=== PATIENT | male | born 2005 | race Caucasian/White ===

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

== ENCOUNTER 2024-01-17 14:57 | Outpatient (CLI) | payer BC, SELFPAY | END 2024-01-17 14:58 | disposition home or self-care (01) | PROVIDERS: PCP Family Medicine; Visit Provider Family Medicine | DX: R79.0 Abnormal level of blood mineral (principal) | CPT/HCPCS: 82728; 83540; 83550 ==

== ENCOUNTER 2024-08-14 09:40 | Outpatient (CLI) | payer BC, SELFPAY | END 2024-08-14 09:41 | disposition home or self-care (01) | PROVIDERS: PCP Family Medicine; Visit Provider Family Medicine | DX: R79.0 Abnormal level of blood mineral (principal); Z13.220 Encounter for screening for lipoid disorders; Z13.21 Encounter for screening for nutritional disorder | CPT/HCPCS: 80061; 82306; 82728 ==

== ENCOUNTER 2024-08-28 10:24 | Outpatient (CLI) | payer BC, SELFPAY ==
[2024-08-28 21:39] LABS: Chloride* 103 mmol/L (96-114); Potassium* 4.2 mmol/L (3.6-5.1); Sodium* 140 mmol/L (135-149)
[2024-08-28 21:42] LABS: Anion Gap 7 mEq/L (7-15); Blood Urea Nitrogen* 11 mg/dL (5-24); Carbon Dioxide* 30 mmol/L (20-32); Creatinine* 0.7 mg/dL (0.6-1.2); Estimated Glomerular Filt Rate 136 ml/min
[2024-08-28 21:43] LABS: Cholesterol* 148 mg/dL (90-199); Glucose* 89 mg/dL (60-115); HDL Cholesterol* 73 mg/dL (>=40); LDL Cholesterol Calculated 63 mg/dL (<100); Magnesium* 1.8 mg/dL (1.5-2.6); Triglycerides* 59 mg/dL (40-149)
[2024-08-28 21:53] LABS: Iron* 73 ug/dL (49-181)
[2024-08-28 22:01] LABS: Vitamin D 25 Hydroxy* 46 ng/mL (30-80)
[2024-08-28 22:05] LABS: Free T4 Free Thyroxine* 0.97 ng/dL (0.70-1.85)
[2024-08-28 22:19] LABS: Ferritin* 32.5 ng/mL (17.9-464.0)
[2024-08-28 22:24] LABS: Hemoglobin A1C* 5.3 % (0-5.6)
[2024-08-28 22:33] LABS: Vitamin B12* 462 pg/mL (243-894)
[2024-08-29 22:11] LABS: Total T3 161 ng/dL (83-215)
[2024-08-29 22:14] LABS: Folate, Serum 19.8 ng/mL (>=5.9)
== END 2024-08-28 10:25 | disposition home or self-care (01) ==
LOC: NPINS 10:25
PROVIDERS: PCP Family Medicine; Visit Provider Nurse Practitioner Psychiatric/Mental Health
DX: F84.0 Autistic disorder (principal); F41.1 Generalized anxiety disorder; F33.0 Major depressive disorder, recurrent, mild
CPT/HCPCS: 80048; 80061; 82306; 82607; 82728; 82746; 83036; 83540; 83735; 84439; 84443; 84480

== ENCOUNTER 2024-09-11 09:11 | Day surgery (SDC) | payer BC, SELFPAY ==
[2024-09-11] VITALS (27 sets, daily range): BP systolic 123–154; BP diastolic 75–98; PULSE 76–116; RESP 14–20; TEMP 36.7–37.3; O2SAT 91–99; BMI 21.6; BMI 21.9
--- OUTSIDE RECORDS SUMMARY | 2024-09-11 09:13 | XMS_ITS | Clinical Summary ---
Author Organization [email or web address] Address [address] [place] [id number] Care Team Providers Care Store Standards Associate Name Role Phone None Primary Care Provider Unavailabl e Allergies Active Allergy Reactions Criticality Noted Date Comments Amoxicillin Hives 05/04/2014 Swelling of the face Animal Dander Other - Describe In Comment Field 10/16/2017 Unknown Reaction recorded previously Azithromycin Edema,Hives,Itching 10/16/2017 Swelling of the face Medications cetirizine (ZyrTEC) 10 mg tablet 05/04/2009 Active melatonin 3 mg cap 05/04/2015 Active multivitamin (Daily Multi-Vitamin) tablet 05/04/2019 Active gabapentin (NEURONTIN) 300 mg capsule Take 900 mg by mouth at bedtime. 02/21/2022 Active desvenlafaxine succinate (PRISTIQ) 50 mg Extended-Releas e tabletIndicatio ns:Anxiety,Depr ession, recurrent Take 1 Tablet (50 mg) by mouth once daily. 90 Tablet 05/25/2022 Active desvenlafaxine succinate (PRISTIQ) 25 mg extended release tabletIndicatio ns:Anxiety,Depr ession, recurrent Take 2 Tablets (50 mg) by mouth once daily. 90 Each 05/25/2022 Active medication order composer Vitron C daily 0 05/25/2022 Active Active Problems Problem Noted Date Diagnosed Date Autism spectrum disorder 05/25/2022 ADHD 05/25/2022 Periodic limb movement disorder (PLMD) Anxiety 05/21/2018 Social History Tobacco Use Types Packs/Day Years Used Date Smoking Tobacco: Never Smokeless Tobacco: Never Tobacco Cessation:Counseling Given: Not Answered Alcohol Use Standard Drinks/Week Comments Never 0 (1 standard drink = 0.6 oz pur e alcohol) PHQ-2 Answer Date Recorded PHQ-2 TOTAL SCORE 1 05/25/2022 Social Connections Answer Date Recorded Do you often feel lonely or isolated from those around you? 0 04/27/2024 Financial Resource Strain Answer Date R ecorded Difficulty of Paying Living Expenses 3 07/05/2024 Difficulty of Paying Living Expenses Not on file 07/05/2024 Food Insecurity Answer Date Recorded Do you worry your food will run out before you are able to buy more? 1 04/27/2024 Transportation Needs Answer Date Record ed Does lack of transportation keep you from medica l appointments? 1 04/27/2024 Does lack of transportation keep you from work, meetings or getting things that you need? 1 04/27/2024 Housing Stability Answer Date Recorded What is your housing situation today? 1 04/27/2024 Utilities Answer Date Recorded Do you have trouble paying f or utilities (for example, heat, electricity, water, phone)? 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 Gender Identity Not on file Sexual Orientation Not on file Obstetrics History Last Filed Vital Signs Vital Sign Reading Time Taken Comments Blood Pressure 116/58 04/27/2024 1:09 PM FIXED INCOME TRADING VICE PRESIDENT Pulse 71 04/27/2024 1:09 PM FIXED INCOME TRADING VICE PRESIDENT Temperature 36.4 C (97.6 F) 04/27/2024 1:09 PM FIXED INCOME TRADING VICE PRESIDENT Respiratory Rate 18 04/27/2024 1:09 PM FIXED INCOME TRADING VICE PRESIDENT Oxygen Saturation 98% 04/27/2024 1:09 PM FIXED INCOME TRADING VICE PRESIDENT Inhaled Oxygen Concentration - - Weight - - Height - - Body Mass Index - - Plan of Treatment Health Maintenance Due Date Last Done Comments Well Child Check for age 3-20 08/09/2007 Tdap 09/09/2015 HIV for age 15-65 09/09/2019 HPV series for age 9-26 (1 - Male 3-dose series) 09/09/2019 BMI (ht and wt on same day) for age 18+ 2022 Hepatitis C screening for age 18-79 2022 Depression screening for age 12+ 05/25/2023 05/25/2022 COVID-19 vaccine series ( season) 2024 04/02/2022, 05/18/2021, 10/08/2020, Additional history exists Tetanus booster 2024 Influenza Vaccine (Season Ended) 2025 Meningococcal series for age 11-21 Aged Out No longer eligible based on patient's age to complete this topic Pneumococcal series for age 6-49 Aged Out No longer eligible based on patient's age to complete this topic Insurance [place] [id number] [employer] NON-ME-ITS [employer] BLUE CROSS OF NON-MN-ITS Care Teams Store Standards Associate Relationship Specialty Start Date End Date None . PCP - General 04/27/24
--- NOTE | 2024-09-11 09:37 | CRLHL7_ITS ---
For Patients: As a result of the Century Cures Act, medical imaging exams and procedure reports are released immediately into your electronic medical record. You may view this report before your referring provider. If you have questions, please contact your health care provider. INDICATION: Right lower quadrant pain. COMPARISON: Abdominal radiograph 10/19/2017 TECHNIQUE: CT of the abdomen and pelvis with intravenous contrast. Multiplanar axial, coronal, and sagittal reformats were reconstructed. Contrast: 66 mL Isovue 370. FINDINGS: Lung bases: Normal. Liver: Normal. No mass. Gallbladder and bile ducts: Normal gallbladder. No bile duct dilation. Pancreas: Normal. Spleen: Normal. Adrenal glands: Normal. Kidneys: Normal parenchyma. No cyst or solid mass. No calculi. No urinary tract dilation. Urinary bladder: Normal. Pelvis: No cyst or mass. Vessels: Normal. Bowel: The appendix is dilated and fluid-filled. There is a 3 centimeter calcified appendicolith at the base. The appendiceal wall is mildly hyperenhancing but does appear to be intact. There is some mild periappendiceal fluid but no phlegmon or abscess. The maximum appendiceal diameter is 1.6 centimeters. No other dilated or inflamed bowel. Moderate stool burden. Lymph nodes: No adenopathy. Peritoneum: No ascites. Abdominal wall: No hernia. Bones: No fractures. No focal worrisome bone lesions. IMPRESSION: Acute appendicitis. There is a 3 centimeter appendicolith. No findings of rupture. No phlegmon or abscess. Please note that all CT scans at this facility use dose modulation, iterative reconstruction, and/or weight-based dosing when appropriate to reduce radiation dose to as low as reasonably achievable. Dictated by Ai Pagan MD @ 09/11/2024 10:11:42 AM (Electronically Signed)
[2024-09-11] MEDS: ONDANSETRON 2 MG/ML inj 4 MG IVP (09:51)
[2024-09-11] MEDS: MORPHINE 4 MG/ML INJ IVP (09:51)
[2024-09-11] MEDS: 0.9 % SODIUM CHLORIDE 1000 ml 1,000 ML IV (09:51)
[2024-09-11 10:03] LABS: Albumin* 5.3 g/dL (3.3-5.0); Chloride* 101 mmol/L (96-114)
[2024-09-11 10:04] LABS: Potassium* 4.1 mmol/L (3.6-5.1); Sodium* 139 mmol/L (135-149)
[2024-09-11 10:06] LABS: Alanine Aminotransferase* 18 U/L (4-50); Aspartate Amino Transferase* 25 U/L (12-35); Blood Urea Nitrogen* 11 mg/dL (5-24); Creatinine* 0.7 mg/dL (0.5-1.5); Est. Creatinine Clearance* 144.72; Estimated Glomerular Filt Rate 135 ml/min
[2024-09-11 10:07] LABS: Alkaline Phosphatase* 119 U/L (40-150); Anion Gap 10 mEq/L (7-15); Bilirubin Total* 1.7 mg/dL (0.1-1.5); Calcium* 10.5 mg/dL (8.4-10.6); Carbon Dioxide* 28 mmol/L (20-32); Glucose* 104 mg/dL (60-115)
[2024-09-11 10:10] LABS: C Reactive Protein* 1.1 mg/dL (0.5-1.0)
--- NOTE | 2024-09-11 10:17 | ED_ITS ---
HPI - General Adult General Date Seen: 09/11/24 Chief complaint: Abdominal Pain Stated complaint: Lower abdominal pain Time Seen by Provider: 09/11/24 09:30 History of Present Illness HPI narrative: Patient is a 19-year-old here with mom for evaluation of abdominal pain. He notes that he developed some diffuse abdominal pain yesterday which localized to the right lower quadrant yesterday evening. It has persisted and worsened since then. He has had associated nausea and dry heaves, no vomiting. He has not had much of an appetite, did eat some toast last night around 6 but has not had anything to eat since then. Last had a little bit of water about an hour prior to coming into the ER. Denies urinary symptoms. No prior abdominal surgeries. History of autism. He is being treated for reflux but this pain is different. Related Data Home Medications ?Medication ?Instructions ?Recorded ?Confirmed cetirizine 10 mg tablet 10 mg PO DAILY 01/30/22 09/11/24 melatonin 3 mg capsule 3 mg PO .Bedtime as needed PRN 01/30/22 09/11/24 multivitamin 1 tab PO QAM 01/17/24 09/11/24 desvenlafaxine succinate 25 mg 25 mg PO QDAY 05/12/24 09/11/24 tablet,extended release 24 hr Previous Rx's ?Medication ?Instructions ?Recorded clonazepam 0.5 mg tablet (Klonopin) 0.5 - 1 mg (1 - 2 x 0.5 mg) PO QHS 03/12/23 #60 tabs iron,carbonyl 65 mg-vitamin C 125 1 tab PO BID #180 tabs 03/13/23 mg tablet,delayed release (Vitron-C) sumatriptan succinate 100 mg tablet See Rx Instructions PO .COMPLEX #9 05/03/23 tabs gabapentin 300 mg capsule 900 mg (3 x 300 mg) PO QHS #270 05/07/23 caps desvenlafaxine succinate 50 mg 50 mg PO QDAY #90 tabs 08/02/23 tablet,extended release 24 hr clobetasol 0.05 % shampoo 1 applic topical QHS 1 week #118 mL 01/17/24 hydrocortisone 2.5 % topical cream 1 applic MT BID-QID PRN 02/07/24 with perineal applicator hemorrhoids #30 grams (Anusol-HC) pantoprazole 20 mg tablet,delayed 20 mg PO BID #60 tabs 08/14/24 release (Protonix) Allergies Allergy/AdvReac Type Severity Reaction Status Date / Time amoxicillin Allergy Severe Hives, Verified 09/11/24 12:02 swelling of the lips azithromycin Allergy Severe Hives, lip Verified 09/11/24 12:02 swelling Review of Systems Status of ROS: Reports: 6 or more systems reviewed and unremarkable except as noted in History and below PFSH [facility] Medical History GERD (gastroesophageal reflux disease) ?K21.9 - Gastro-esophageal reflux disease without esophagitis (ICD-10) Attention deficit hyperactivity disorder (ADHD) ?F90.9 - Attention-deficit hyperactivity disorder, unspecified type (ICD-10) BRBPR (bright red blood per rectum) ?K62.5 - Hemorrhage of anus and rectum (ICD-10) Allergic rhinitis ?J30.9 - Allergic rhinitis, unspecified (ICD-10) Periodic limb movement disorder ?G47.61 - Periodic limb movement disorder (ICD-10) Parasomnia ?G47.50 - Parasomnia, unspecified (ICD-10) Migraines ?G43.909 - Migraine, unspecified, not intractable, without status migrainosus (ICD-10) Acne vulgaris ?L70.0 - Acne vulgaris (ICD-10) Social History Smoking Status: Never smoker Do you use any of these nicotine containing products: None Second hand tobacco smoke exposure: No How often do you have a drink containing alcohol: never How often do you have six or more drinks on one occasion: Never AUDIT-C Alcohol total score: 0 Non-prescribed substance use: denies use service: No Exam Narrative: Exam Narrative: Vital signs reviewed In general, alert, nontoxic Head: Normocephalic, atraumatic. Eyes: Sclera clear. Pupils equal and reactive. ENT: Mucous membranes moist. Neck: Supple without adenopathy. Heart: Regular rate and rhythm without murmur. Lungs: Clear. No increased work of breathing, crackles or wheezes. Abdomen: Abdomen is soft, flat. He has localized right lower quadrant tenderness, does not have rebound guarding or rigidity. Extremities: Well perfused, pulses intact. No significant edema. Neurologic: Alert, conversant. Speech fluent, face symmetric. Moves all extremities equally. Skin: Warm, dry well perfused. Affect: Normal. Const: Vital Signs, click to edit/add: Vital Signs - 24 hr 09/11/24 09:14 09/11/24 09:20 09/11/24 10:13 Temperature 98.4 F Pulse Rate 87 Pulse Rate [Right Pulse Oximeter] 116 H Respiratory Rate 16 Blood Pressure Blood Pressure [Ri ght Upper Arm] 132/84 Pulse Oximetry 97 91 Oxygen Delivery Me thod Room Air 09/11/24 10:15 09/11/24 10:16 09/11/24 10:30 Temperature Pulse Rate 83 86 82 Pulse Rate [Right Pulse Oximeter] Respiratory Rate Blood Pressure 131/84 Blood Pressure [Ri ght Upper Arm] Pulse Oximetry 94 97 96 Oxygen Delivery Me thod 09/11/24 10:31 09/11/24 10:45 09/11/24 11:00 Temperature Pulse Rate 81 81 83 Pulse Rate [Right Pulse Oximeter] Respiratory Rate Blood Pressure 130/83 Blood Pressure [Ri ght Upper Arm] Pulse Oximetry 97 96 97 Oxygen Delivery Me thod 09/11/24 11:01 09/11/24 11:15 09/11/24 11:30 Temperature Pulse Rate 81 87 88 Pulse Rate [Right Pulse Oximeter] Respiratory Rate Blood Pressure 131/86 Blood Pressure [Ri ght Upper Arm] Pulse Oximetry 97 97 95 Oxygen Delivery Me thod 09/11/24 11:31 09/11/24 11:31 09/11/24 11:31 Temperature Pulse Rate 87 87 87 Pulse Rate [Right Pulse Oximeter] Respiratory Rate Blood Pressure 126/80 126/80 126/80 Blood Pressure [Ri ght Upper Arm] Pulse Oximetry 95 95 95 Oxygen Delivery Me thod 09/11/24 11:31 09/11/24 11:32 Temperature Pulse Rate 87 90 Pulse Rate [Right Pulse Oximeter] Respiratory Rate Blood Pressure 126/80 Blood Pressure [Ri ght Upper Arm] Pulse Oximetry 95 95 Oxygen Delivery Me thod Course Course ED Course: An IV was established, will give a little bit of fluid here as well as 4 mg of morphine, 4 mg of Zofran for pain and nausea control. Story is concerning for appendicitis, other diagnostic considerations would be intussusception, kidney stone, urinary tract infection, cholecystitis, gastroenteritis. CT scan of the abdomen ordered as well as routine labs. Labs are notable for normal white blood cell count of 139, normal diff. CRP is minimally elevated at 1.1. Total bilirubin is little high at 1.7 other LFTs are normal. I reviewed his CT scan, appendix is dilated at 1/2 cm with an appendicolith and surrounding inflammatory changes. Final radiology report was reviewed, they note an appendical lift at the base of the appendix, maximum dilation of 1.6 cm, some periappendiceal fluid without obvious evidence of rupture. No abscess or fluid collection. Case discussed with Dr. Loyola. Patient given IV Cipro and Flagyl secondary to his amoxicillin allergy. Plan will be for operative management when the OR is available. Vital Signs Vital signs: Initial Vital Signs Temperature 98.4 F 09/11/24 09:14 Temperature Source Temporal Artery Scan 09/11/24 09:14 Respiratory Rate 16 09/11/24 09:14 Blood Pressure 132/84 09/11/24 09:14 Blood Pressure Mean 100 09/11/24 09:14 Blood Pressure Position Sitting 09/11/24 09:14 Pulse Oximetry 97 09/11/24 09:14 Oxygen Delivery Method Room Air 09/11/24 09:14 Vital Signs Temperature 98.4 F 09/11/24 09:14 Respiratory Rate 16 09/11/24 09:14 Blood Pressure 132/84 09/11/24 09:14 Pulse Oximetry 97 09/11/24 09:14 Oxygen Delivery Method Room Air 09/11/24 09:14 Temperature 98.4 F 09/11/24 09:14 Pulse Rate 90 09/11/24 11:32 Respiratory Rate 16 09/11/24 09:14 Blood Pressure 126/80 09/11/24 11:31 Pulse Oximetry 95 09/11/24 11:32 Oxygen Delivery Method Room Air 09/11/24 09:14 Medications Administered Medications: Generic Name Dose Route Start Last Admin Trade Name Freq PRN Reason Stop Dose Admin Ciprofloxacin 610 mg in 305 mls @ 305 mls/hr 09/11/24 10:15 09/11/24 11:35 Ciprofloxacin 10 mg/kg (610 mg) Infused IVPB Infusion Q12H GALINA Metronidazole 500 mg in 100 mls @ 100 mls/hr 09/11/24 11:34 09/11/24 11:41 Metronidazole IVPB 09/11/24 12:33 100 mls/hr ONCE ONE Administration Discontinued Medications Generic Name Dose Route Start Last Admin Trade Name Blanca PRN Reason Stop Dose Admin Sodium Chloride 1,000 mls @ 1,000 mls/hr 09/11/24 09:45 09/11/24 10:59 0.9 % Sodium Chloride 1000 Ml IV 09/11/24 10:44 Infused .Q1H GALINA Infusion Morphine Sulfate 4 mg 09/11/24 09:37 09/11/24 09:51 Morphine 4 Mg/Ml Inj IVP 09/11/24 09:38 4 mg ONCE ONE Administration Ondansetron HCl 4 mg 09/11/24 09:37 09/11/24 09:51 Ondansetron 2 Mg/Ml Inj IVP 09/11/24 09:38 4 mg ONCE ONE Administration Medical Decision Making Lab Data Labs: Lab Results 09/11/24 Range/Units 09:43 Sodium 139 (135-149) mmol/L Potassium 4.1 (3.6-5.1) mmol/L Chloride 101 (96-114) mmol/L Carbon Dioxide 28 (20-32) mmol/L Anion Gap 10 (7-15) mEq/L BUN 11 (5-24) mg/dL Creatinine 0.7 (0.5-1.5) mg/dL Estimated Creat Clear 144.72 Estimated GFR 135 ml/min Glucose 104 (60-115) mg/dL Calcium 10.5 (8.4-10.6) mg/dL Total Bilirubin 1.7 H (0.1-1.5) mg/dL AST 25 (12-35) U/L ALT 18 (4-50) U/L Alkaline Phosphatase 119 (40-150) U/L C-Reactive Protein 1.1 H (0.5-1.0) mg/dL Total Protein 8.0 (6.0-8.3) g/dL Albumin 5.3 H (3.3-5.0) g/dL Discharge Plan Discharge Clinical Impression: Acute appendicitis Patient Disposition: XFER to OR
--- OUTSIDE RECORDS SUMMARY | 2024-09-11 10:21 | XMS_ITS | Clinical Summary ---
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 Gender Identity Not on file Sexual Orientation Not on file Obstetrics History Last Filed Vital Signs Vital Sign Reading Time Taken Comments Blood Pressure 116/58 04/27/2024 1:09 PM RATCHET SETTER Pulse 71 04/27/2024 1:09 PM RATCHET SETTER Temperature 36.4 C (97.6 F) 04/27/2024 1:09 PM RATCHET SETTER Respiratory Rate 18 04/27/2024 1:09 PM RATCHET SETTER Oxygen Saturation 98% 04/27/2024 1:09 PM RATCHET SETTER Inhaled Oxygen Concentration - - Weight - [...] patient's age to complete this topic Insurance [place] [id number] [employer] NON-HI-ITS [employer] NON[employer] BLUE CROSS OF NON-MN-ITS Care Teams Vocational Education Teacher Relationship Specialty Start Date End Date None . PCP - General 04/27/24
[2024-09-11] MEDS: metroNIDAZOLE 500 MG/100 ML PIGGYBACK 100 MG IVPB (11:41)
--- NOTE | 2024-09-11 12:25 | P.GSHP_ITS ---
History of Present Illness History of Present Illness Date Seen: 09/11/24 Chief complaint: Lower abdominal pain Narrative: Tuan Aguilar is a 19 year old male who presented to the emergency department with 12 hours of lower abdominal pain. The pain started around 8:00 p.m. last night and was in his lower abdomen, more diffuse. This morning it is migrated to the right lower quadrant. He has never had pain like this before. He does report some associated nausea this morning, no emesis. Denies any diarrhea. No fevers at home. Does report a decrease in appetite. He has never had abdominal surgery before. [facility] Medical History GERD (gastroesophageal reflux disease) ?K21.9 - Gastro-esophageal reflux disease without esophagitis (ICD-10) Attention deficit hyperactivity disorder (ADHD) ?F90.9 - Attention-deficit hyperactivity disorder, unspecified type (ICD-10) BRBPR (bright red blood per rectum) ?K62.5 - Hemorrhage of anus and rectum (ICD-10) Allergic rhinitis ?J30.9 - Allergic rhinitis, unspecified (ICD-10) Periodic limb movement disorder ?G47.61 - Periodic limb movement disorder (ICD-10) Parasomnia ?G47.50 - Parasomnia, unspecified (ICD-10) Migraines ?G43.909 - Migraine, unspecified, not intractable, without status migrainosus (ICD-10) Acne vulgaris ?L70.0 - Acne vulgaris (ICD-10) Social History Smoking Status: Never smoker Do you use any of these nicotine containing products: None Second hand tobacco smoke exposure: No How often do you have a drink containing alcohol: never How often do you have six or more drinks on one occasion: Never AUDIT-C Alcohol total score: 0 Non-prescribed substance use: denies use Caffeine: No service: No Meds Home Medications and Allergies Home Medications ?Medication ?Instructions ?Recorded ?Confirmed ?Type cetirizine 10 mg tablet 10 mg PO DAILY 01/30/22 09/11/24 History melatonin 3 mg capsule 3 mg PO .Bedtime as needed PRN 01/30/22 09/11/24 History multivitamin 1 tab PO QAM 01/17/24 09/11/24 History desvenlafaxine succinate 25 mg 25 mg PO QDAY 05/12/24 09/11/24 History tablet,extended release 24 hr Allergies Allergy/AdvReac Type Severity Reaction Status Date / Time amoxicillin Allergy Severe Hives, Verified 09/11/24 12:02 swelling of the lips azithromycin Allergy Severe Hives, lip Verified 09/11/24 12:02 swelling Exam Narrative: Exam Narrative: General: Alert and oriented, no acute distress respiratory: Equal breath rise bilaterally, maintained on room air CV: Well perfused abdomen: Soft, tender to palpation right lower quadrant with some guarding, no rebound. Non peritoneal. Const: Vital Signs, click to edit/add: Vital Signs - 24 hr 09/11/24 09:14 09/11/24 09:20 09/11/24 10:13 Temperature 98.4 F Pulse Rate 87 Pulse Rate [Right Pulse Oximeter] 116 H Respiratory Rate 16 Blood Pressure Blood Pressure [Ri ght Upper Arm] 132/84 Pulse Oximetry 97 [facility] 09/11/24 10:15 09/11/24 10:16 09/11/24 10:30 Temperature Pulse Rate 83 86 82 Pulse Rate [Right Pulse Oximeter] Respiratory Rate Blood Pressure 131/84 Blood Pressure [Ri ght Upper Arm] Pulse Oximetry 94 97 96 Oxygen Delivery Nj thod 09/11/24 10:31 09/11/24 10:45 09/11/24 11:00 Temperature Pulse Rate 81 81 83 Pulse Rate [Right Pulse Oximeter] Respiratory Rate Blood Pressure 130/83 Blood Pressure [Ri ght Upper Arm] Pulse Oximetry 97 96 97 Oxygen Delivery Nj thod 09/11/24 11:01 09/11/24 11:15 09/11/24 11:30 Temperature Pulse Rate 81 87 88 Pulse Rate [Right Pulse Oximeter] Respiratory Rate Blood Pressure 131/86 Blood Pressure [Ri ght Upper Arm] Pulse Oximetry 97 97 95 Oxygen Delivery Me thod 09/11/24 11:31 09/11/24 11:31 09/11/24 11:31 Temperature Pulse Rate 87 87 87 Pulse Rate [Right Pulse Oximeter] Respiratory Rate Blood Pressure 126/80 126/80 126/80 Blood Pressure [Ri ght Upper Arm] Pulse Oximetry 95 95 95 Oxygen Delivery Nj thod 09/11/24 11:31 09/11/24 11:32 09/11/24 12:08 Temperature 98.3 F Pulse Rate 87 90 Pulse Rate [Right Pulse Oximeter] Respiratory Rate 16 Blood Pressure 126/80 Blood Pressure [Ri ght Upper Arm] Pulse Oximetry 95 95 Oxygen Delivery Me thod Room Air Results Results Labs: CBC was not done, at on labs still pending. CRP 1.1. Total bilirubin 1.7. This has not been differentiated. Alkaline phosphatase and transaminases within normal limits. Abdomen CT scan report/results: report reviewed and image reviewed Progress Note:A&P Assessment and plan (1) Acute appendicitis: Status: Acute Assessment and Plan: Patient is a 19-year-old male with clinical history and exam consistent with acute appendicitis. His workup in the emergency department has demonstrated a mild elevation in inflammatory markers ( CRP 1.1). His total bilirubin is elevated as well, but no evidence of biliary obstruction or elevation in his transaminases. Unfortunately a CBC was not done, so an add on lab is pending. CT scan was performed which demonstrated a 3 cm appendicolith and dilated, fluid-filled appendix consistent with acute appendicitis. No evidence of phlegmon or abscess. I discussed the treatment options with the patient including non-surgical and surgical options. I recommended laparoscopic appendectomy given the patient's symptoms and imaging findings. The risks of surgery were reviewed with the patient including the risks of bleeding, post-operative wound or intra-abdominal infection, injury to abdominal structures and possible conversion to an open operation. We also discussed anesthetic complications including OR, stroke, respiratory failure and blood clots. The patient voiced an understanding of our conversation, had the opportunity to ask questions, agreed to accept the risks of surgery and asked that we proceed with surgery.
[2024-09-11] MEDS: 0.9 % SODIUM CHLORIDE 1000 ml 1,000 ML 125 ML IV (12:30)
[2024-09-11] MEDS: BUPIVACAINE 0.25% 30 ML INJECTION (13:25)
--- NOTE | 2024-09-11 13:28 | P.ANES_ITS ---
Anesthesia Charges Start Date/Time Anesthesia Start Date: 09/11/24 Anesthesia Start Time: 11:30 Stop Date/Time Anesthesia Stop Date: 09/11/24 Anesthesia Stop Time: 12:30 Coding CPT Codes CPT Codes: ANESTH SURG LOWER ABDOMEN - 33582 ([id number]) P2 - PATIENT W/MILD SYST DISEASE, QZ - VIBRATION ENGINEER SVC W/O SENIOR DRAFTER BY
--- NOTE | 2024-09-11 13:28 | W.ANESCHARGE ---
Anesthesia Charges Start Date/Time Anesthesia Start Date: 09/11/24 Anesthesia Start Time: 11:30 Stop Date/Time Anesthesia Stop Date: 09/11/24 Anesthesia Stop Time: 12:30 Coding CPT Codes CPT Codes: ANESTH SURG LOWER ABDOMEN - 50705 ([id number]) P2 - PATIENT W/MILD SYST DISEASE, QZ - LAP CUTTER TRUER OPERATOR SVC W/O MEDICAL INFORMATION OFFICER BY
--- NOTE | 2024-09-11 13:53 | PM.GSPRC ---
Operative Note Date of procedure: 09/11/24 Pre-op diagnosis: Acute appendicitis Post-op diagnosis: Same, non perforated Type of Procedure: Laparoscopic appendectomy Indications: Patient is a 19-year-old male with clinical workup and imaging consistent with acute appendicitis. Risks and benefits of operative intervention were discussed at length with the patient. Risks included but was not limited to: Bleeding, infection, risk of damage to surrounding structures, possible need for additional procedures, possible need to convert to an open operation and postoperative complications such as pneumonia, pulmonary emboli or MD. All questions and concerns were addressed with the patient agreeing to proceed. Procedure Description: After discussing the risks and benefits of the procedure, the patient signed informed consent.? The operative site was marked and the patient was brought to the operating room and placed on the operating table in supine position.? Care was taken to pad the patient's pressure points.?? The patient was then intubated by anesthesia.?? The operative site was then prepped and draped in the usual sterile fashion.? A time-out was then performed. Entrance to the abdomen was obtained via a 5 mm optical trocar in the left upper quadrant. The abdomen was insufflated and briefly surveyed for any signs of injury. There were none. A 12 mm port was placed at the umbilicus as well as a 5 mm port in the left lower quadrant under direct vision. The patient was then placed in Trendelenburg position with the right side up. The small bowel was gently moved out of the way and the appendix was in view. A small amount of dissection was necessary to free the appendix from the surrounding pelvic attachments and the underlying small bowel. This was carefully performed with cautery and blunt dissection. The body of the appendix was dilated and partially necrotic, but with no evidence of perforation. The body was grasped and pulled into view. A mesenteric window was created between the base of the appendix and the mesoappendix. A 45 mm Endo-TAJ purple load stapler was then used to transect the appendix at its base. A 45 mm vascular load stapler was then used to take the mesoappendix. The staple lines were inspected for bleeding. There was none. The appendix was then removed from the abdomen using an Endo-Catch bag. The specimen was sent to pathology. Some reactive fluid was found in the pelvis and suctioned. The 12 mm port site fascia was closed with 0 Vicryl. All other ports were removed under direct visualization. The skin was then closed with absorbable subcuticular suture. Sterile dressings were then applied. Instrument sponge and needle counts were correct at the end of the case. The patient was then woken and transported to the PACU in stable condition. Findings: Inflamed appendix, no evidence perforation Anesthesia: GETA Surgeon: Alida Loyola MD Estimated blood loss (mL): 5 Specimen: Appendix Condition: stable Disposition: PACU
== END 2024-09-11 14:50 | disposition home or self-care (01) ==
LOC: ED 10:23 → SS 10:28 → OR 11:26
PROVIDERS: Emergency Provider Emergency Medicine; PCP Family Medicine; Visit Provider Surgery
PROC: 0DTJ4ZZ Resection of Appendix, Percutaneous Endoscopic Approach (ICD-10-PCS; CPT 44970; principal; 2024-09-11 12:15)
DX: K35.80 Unspecified acute appendicitis (principal); R10.31 Right lower quadrant pain; K21.9 Gastro-esophageal reflux disease without esophagitis
CPT/HCPCS: 44970; 00840; 36415; 74177; 80053; 81001; 85025; 86140; 88304; 99284; 99285; J0330; J0665; J0744; J1100; J1836; J1885; J2250; J2270; J2405; J2704; J3010; J3490; J7030; Q9967